=== PATIENT | male | born 1950 | race African-American/Black ===

== ENCOUNTER 2020-09-07 11:03 | Emergency (ER) | payer OTHER ==
[~2020-09-07 11:03] MED LIST: Iopamidol 370 76% 100 ML VIAL ONE
[2020-09-07] MEDS ORDERED: Ketorolac Tromethamine 30 MG/ML VIAL ONE (11:37)
[2020-09-07] MEDS ORDERED: Acetaminophen 500 MG TAB ONE (11:37)
[2020-09-07] MEDS ORDERED: predniSONE 20 MG TAB ONE (11:37)
--- NOTE | 2020-09-07 12:00 | RAD ---
PORTABLE CHEST: Date: 09/07/2020 PROVIDED CLINICAL HISTORY: Shortness of breath. FINDINGS: No comparison. Cardiac and mediastinal silhouette is within normal limits. Advanced emphysematous changes are seen. Vascular calcifications noted. No focal consolidation, pleural fluid, or pneumothorax apparent. IMPRESSION: No evidence for an acute cardiopulmonary process. POS: AH
[2020-09-07 12:26] LABS: #Eosinphils 0.7 thou/uL (0.0-0.7); #Monocytes 1.3 thou/uL (0.11-0.59); #Neutrophils 7.9 thou/uL (1.40-6.50); %Basophils 0.3 % (0.0-1.0); %Lymphocytes 16.4 % (21.0-51.0); %Monocytes 11.2 % (0.0-10.0); %Neutrophils 66.1 % (42.0-75.0); Hemoglobin 15.1 g/dL (14.0-18.0); Mean Corpuscular HGB CONC 32.6 g/dL (32.0-36.0); Mean Corpuscular Hemoglobin 29.4 pg (27.0-31.0); Mean Corpuscular Volume 90.2 fL (78.0-98.0); Mean Platelet Volume 7.7 fL (7.4-10.4); Platelet Count 291 thou/uL (130-400); RBC Distribution Width 12.1 % (11.5-14.5); Red Blood Cell (RBC) Count 5.14 mill/uL (4.70-6.10); White Blood Cell (WBC) Count 11.9 thou/uL (4.8-10.8)
[2020-09-07] MEDS ORDERED: Albuterol 200 PUFF (6.7GM INHALER) ONE (12:33)
[2020-09-07 12:54] LABS: ALT (SGPT) 12 U/L (8-55); AST (SGOT) 16 U/L (5-34); Albumin 3.8 g/dL (3.4-4.8); Alkaline Phosphatase 92 U/L (40-110); Anion Gap 13 mmol/L (10-20); BUN (Urea Nitrogen) 20 mg/dL (8.4-25.7); Bilirubin, Total 0.7 mg/dL (0.2-1.2); Calc. Creatinine Clearance 0 mL/min (70-130); Calcium 8.8 mg/dL (7.8-10.44); Carbon Dioxide 23 mmol/L (23-31); Chloride 102 mmol/L (98-107); Estimated GFR-MDRD 69; Globulin 3.6 g/dL (2.4-3.5); Glucose 104 mg/dL (83-110); Lipase 24 U/L (8-78); Potassium 4.7 mmol/L (3.5-5.1); Protein, Total 7.4 g/dL (5.8-8.1); Sodium 133 mmol/L (136-145)
--- NOTE | 2020-09-07 15:21 | CT ---
CT Abdomen Pelvis W Con: 09/07/2020 2:50 PM CLINICAL INFORMATION: Bilateral abdominal pain radiating to the back that started 3 days ago. COMPARISON: None. TECHNIQUE: Multiple contiguous axial images were obtained and a CT of the abdomen and pelvis with IV contrast. C oronal and sagittal reformats were performed. FINDINGS: Lower Chest: Emphysematous changes in the lung bases. Abdomen: Liver: A subcentimeter hypodensity in the right lobe may represent a cyst. Bile Ducts: Normal caliber. Gallbladder: Calcified gallstones Pancreas: within normal limits. Spleen: within normal limits. Adrenals: within normal limits. Kidneys: within normal limits. Pelvis: Reproductive Organs: No pelvic masses. Ureters: within normal limits. Bladder: within normal limits. Peritoneum: No ascites or free air, no fluid collection. Bowel: Normal caliber. Normal appendix. Mesentery and Retroperitoneum: No enlarged mesenteric or retroperitoneal lymph nodes. Vessels: Atherosclerotic calcifications. Abdominal Wall: Subcentimeter fat-containing umbilical hernia. Bones: There is chronic wedging of the superior endplate of L2 vertebral body. IMPRESSION: 1. Cholelithiasis 2. Possible small hepatic cyst
== END 2020-09-07 16:30 ==
LOC: ERS 11:03
DX: S39.011A Strain of muscle, fascia and tendon of abdomen, initial encounter (principal); K80.20 Calculus of gallbladder without cholecystitis without obstruction; J44.1 Chronic obstructive pulmonary disease with (acute) exacerbation; K21.9 Gastro-esophageal reflux disease without esophagitis; I10 Essential (primary) hypertension; N40.0 Benign prostatic hyperplasia without lower urinary tract symptoms; Z85.46 Personal history of malignant neoplasm of prostate; Z79.899 Other long term (current) drug therapy; Z79.51 Long term (current) use of inhaled steroids; X58.XXXA Exposure to other specified factors, initial encounter
CPT/HCPCS: 36415; 71045; 74177; 80053; 83690; 83880; 84484; 85025; 93005; 96372; J1885; J7512; Q9967